=== PATIENT | female | born 1975 | race Caucasian/White ===

== ENCOUNTER 2024-04-20 11:28 | Outpatient (AMB) | payer OTHER, SELFPAY ==
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
[2024-04-20 11:41] VITALS: BP 118/78; PULSE 90; RESP 15; O2SAT 97; BMI 44.2
== END 2024-04-20 12:06 | disposition home or self-care (01) ==
LOC: HO.PMC 11:28
PROVIDERS: PCP Physical Medicine & Rehabilitation; Visit Provider Internal Medicine
DX: G58.8 Other specified mononeuropathies (principal); M53.3 Sacrococcygeal disorders, not elsewhere classified
CPT/HCPCS: 99204

== ENCOUNTER → 2024-04-20 11:28 | Outpatient (BNVA) | payer OTHER, SELFPAY | PROVIDERS: PCP Physical Medicine & Rehabilitation; Visit Provider Internal Medicine ==

== ENCOUNTER 2024-07-13 11:41 | Outpatient (AMB) | payer OTHER, SELFPAY ==
[2024-07-13 11:49] VITALS: BP 142/69; PULSE 109; RESP 16; O2SAT 96; BMI 42.5
--- NOTE | 2024-07-13 11:49 | A.OFFVIS_ITS ---
Vital Signs 07/13/24 11:49 Height 5 ft 1 in Weight 225 lb BMI 42.5 BP 142/69 H Blood Pressure Location Lt brachial Position Sitting Respiration 16 Pulse 109 H Pulse Source Pulse Oximeter Pulse Oximetry (%) 96 Oxygen Delivery Method Room Air Intake Visit Reasons: Discuss PNS Trial Denial/Alternate Options Allergies enoxaparin [From Lovenox] Allergy (Severe, Verified 07/13/24 11:50) itching, redness Sulfa (Sulfonamide Antibiotics) Allergy (Severe, Verified 07/13/24 11:50) Anaphylaxis Medication List - Last Reconciled 07/13/24 by Mercy Evans LPN diclofenac sodium 75 mg PO BID fluticasone propion-salmeterol 250-50 mcg/dose 1 ea inhalation BID gabapentin 600 mg PO BID ipratropium-albuterol 0.5 mg-3 mg(2.5 mg base)/3 mL mL inhalation lorazepam 0.5 mg PO Q12H PRN HPI HPI Discuss PNS Trial Denial/Alternate Options: Details: 49-year-old female who presents today to the office for a discussion of peripheral nerve stimulator trial denial. Her insurance company denied PA for the trial of a peripheral nerve stimulator due to BMI. She is unable to lose weight and can?t go to the gym due to pain. She has tried cortisone injection in the past that provided relief for three days. She has familial history of DM but she has no personal history of DM. She had taken tramadol in the past with good relief. [facility] Medical History (Updated 05/22/24 @ 08:36 by Jayden Jerome MD) Anxiety Asthma Review of Systems Const All systems reviewed & are unremarkable except as noted in HPI and below Physical Exam Vital Signs: Last Vital Signs Pulse 109 H 07/13/24 11:49 Resp 16 07/13/24 11:49 BP 142/69 H 07/13/24 11:49 Pulse Ox 96 07/13/24 11:49 Oxygen Delivery Method Room Air 07/13/24 11:49 BMI result Body Mass Index 42.5 General: Appears afebrile. Alert and oriented. Mood and affect appropriate. Follows and participates in conversation appropriately. Respiratory effort is unlabored. Able to transition from sit to stand unassisted. Ambulates with bilaterally normal heel strike and toe off. Results Reviewed Results Reviewed: No imaging is available for review. 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 Once she has achieved the desired weight, she will let us know, and we will resubmit the PA. Scribed for Dr. Jerome by Juan Pereira, center medical specialist, on 07/13/2024. I, Dr. Jerome, have personally reviewed and agree with the information entered by the scribe. Coding Level of Care Code Est Pt Level 3 (43543) Diagnoses Sacroiliac joint dysfunction M53.3 Cluneal neuropathy G58.8
== END 2024-07-13 12:37 | disposition home or self-care (01) ==
PROVIDERS: PCP Physical Medicine & Rehabilitation; Visit Provider Internal Medicine
DX: M53.3 Sacrococcygeal disorders, not elsewhere classified (principal); G58.8 Other specified mononeuropathies
CPT/HCPCS: 99213